=== PATIENT | male | born 1955 | race Caucasian/White ===

== ENCOUNTER → 2017-07-31 | Outpatient (CLI) | payer OTHER ==
--- NOTE | 2017-07-31 15:36 | RADRPT ---
EXAM DATE/TIME: 07/31/2017 14:50 [facility] COMPARISON: No previous studies available for comparison. INDICATIONS : Cervical spine pain for several months with no known trauma MEDICAL HISTORY : None. SURGICAL HISTORY : None. ENCOUNTER: Initial ACUITY: 4 - 6 months PAIN SCORE: 8/10 LOCATION: Cervical spine FINDINGS: A complete cervical spine series shows normal alignment. There is disc space narrowing with anterior osteophyte production at C4-C5, C5 and C6, and C6-C7. Bony uncovertebral hypertrophy generates right C4 and to lesser degree C5 neural foraminal narrowing. The left appear patent. No fracture or disloca tion. Paraspinal soft tissues are unremarkable. CONCLUSION: Degenerative changes without acute abnormality. Chay Kennedy Jr., MD on July 31, 2017 at 15:32 Board Certified Radiologist. This report was verified electronically.
--- NOTE | 2017-07-31 15:42 | RADRPT ---
EXAM DATE/TIME: 07/31/2017 14:56 [facility] COMPARISON: No previous studies available for comparison. INDICATIONS : Patient complains of pain in bilateral hands. Evaluate for osteoarthritis. MEDICAL HISTORY : None. SURGICAL HISTORY : None. ENCOUNTER: Initial ACUITY: 1 year PAIN SCORE: 6/10 LOCATION: Right Hand FINDINGS: Three view examination of the right hand demonstrates no soft tissue swelling, dislocation, or fractu re. Degenerative changes throughout the interphalangeal joints, carpus including the first carpometac arpal joint. Tiny radiopaque foreign body within the soft tissues of the second digit distal phalanx. CONCLUSION: Degenerative changes without fracture. Small foreign body distal second digit. Raúl Daugherty MD on July 31, 2017 at 15:38 Board Certified Radiologist. This report was verified electronically.
--- NOTE | 2017-07-31 15:43 | RADRPT ---
EXAM DATE/TIME: 07/31/2017 14:56 [facility] COMPARISON: No previous studies available for comparison. INDICATIONS : Patient complains of bilateral hand pain. Evaluate for osteoarthritis. MEDICAL HISTORY : None. SURGICAL HISTORY : None. ENCOUNTER: Initial ACUITY: 1 year PAIN SCORE: 6/10 LOCATION: Left Hand FINDINGS: Three view examination of the left hand demonstrates no soft tissue swelling, dislocation, or fractur e. Scattered degenerative changes involving interphalangeal joints and carpus including the first m etacarpal phalangeal joint. Persistent flexion of the PIP joint of the little finger. Radiopaque fore ign body along the proximal third digit. Radiopaque foreign body also along the distal radius.. CONCLUSION: 1. Osteoarthritic changes without fracture. 2. Small foreign bodies base of the third digit and along the distal radius. Raúl Daugherty MD on July 31, 2017 at 15:39 Board Certified Radiologist. This report was verified electronically.
--- NOTE | 2017-07-31 15:44 | RADRPT ---
EXAM DATE/TIME: 07/31/2017 15:07 [facility] COMPARISON: No previous studies available for comparison. INDICATIONS : Lower back pain for several months with no known injury MEDICAL HISTORY : None. SURGICAL HISTORY : None. ENCOUNTER: Initial ACUITY: 4 - 6 months PAIN SCORE: 8/10 LOCATION: Lumbar spine FINDINGS: There are five non-rib bearing vertebral bodies. The vertebral bodies are in normal alignment withou t evidence of subluxation or scoliosis. Degenerative changes are seen.. Bony mineralization is thi l. No fracture is identified. CONCLUSION: Degenerative changes without fracture. Raúl Daugherty MD on July 31, 2017 at 15:42 Board Certified Radiologist. This report was verified electronically.
--- NOTE | 2017-07-31 15:44 | RADRPT ---
EXAM DATE/TIME: 07/31/2017 15:02 [facility] COMPARISON: No previous studies available for comparison. INDICATIONS : Thoracic spine pain for several months with no known injury MEDICAL HISTORY : None. SURGICAL HISTORY : None. ENCOUNTER: Initial ACUITY: 4 - 6 months PAIN SCORE: 8/10 LOCATION: Thoracic spine FINDINGS: There is normal alignment of the thoracic vertebral bodies. Vertebral body height is maintained. No evidence of fracture or subluxation. Degenerative changes. The paravertebral reflections are not th ickened. Right subclavian central line with tip in the cavoatrial junction. CONCLUSION: Degenerative changes without fracture. Raúl Daugherty MD on July 31, 2017 at 15:41 Board Certified Radiologist. This report was verified electronically.
== END ==
LOC: HRAD 14:27
DX: M48.00 Spinal stenosis, site unspecified (principal); M19.90 Unspecified osteoarthritis, unspecified site
CPT/HCPCS: 72050; 72072; 72110; 73130

== ENCOUNTER → 2017-10-24 | Outpatient (CLI) | payer OTHER ==
[~2017-10-24] MED LIST: IOHEXOL 350 MG/ML 10 ML VIAL (for RAD DIAG) IVCONTRAST ONE
--- NOTE | 2017-10-24 14:38 | RADRPT ---
EXAM DATE/TIME: 10/24/2017 13:46 [facility] COMPARISON: No previous studies available for comparison. INDICATIONS : Folliculaar lymphoma IV CONTRAST: 87 cc Omnipaque 350 (iohexol) IV ; Cumulative dose for multiple exams. ORAL CONTRAST: No oral contrast ingested. RADIATION DOSE: 19.68 CTDIvol (mGy) ; Combined studies - Thorax/Abdomen/Pelvis MEDICAL HISTORY : None SURGICAL HISTORY : None. ENCOUNTER: Initial ACUITY: 1 day PAIN SCALE: 0/10 LOCATION: abdomen TECHNIQUE: Volumetric scanning of the abdomen and pelvis was performed. Using automated exposure control and ad justment of the mA and/or kV according to patient size, radiation dose was kept as low as reasonably achievable to obtain optimal diagnostic quality images. DICOM format image data is available electro nically for review and comparison. FINDINGS: LOWER LUNGS: Scarring of both lung bases. LIVER: Homogeneously lower density without lesion. There is no dilation of the biliary tree. No calcified gallstones. SPLEEN: Normal size without lesion. PANCREAS: Within normal limits. KIDNEYS: Normal in size and shape. There is no mass, stone or hydronephrosis. ADRENAL GLANDS: Within normal limits. VASCULAR: There is no aortic aneurysm. BOWEL/MESENTERY: The stomach, small bowel, and colon demonstrate no acute abnormality. There is no free intraperitone al air or fluid. ABDOMINAL WALL: Within normal limits. RETROPERITONEUM: There is significant soft tissue inflammation in and around the SMA axis and the mesentery, very unus ual in its appearance. BLADDER: No wall thickening or mass. REPRODUCTIVE: Within normal limits. INGUINAL: There is no lymphadenopathy or hernia. MUSCULOSKELETAL: Within normal limits for patient age. CONCLUSION: Mild scarring in both lung bases. Abnormal appearance to the SMA axis with significant inflammation s oft tissue surrounding the vessel. There is no obvious measurable mass, just diffuse induration of th e fatty tissues around the SMA. Donta Travis MD on October 24, 2017 at 14:33 Board Certified Radiologist. This report was verified electronically.
--- NOTE | 2017-10-24 14:47 | RADRPT ---
EXAM DATE/TIME: 10/24/2017 13:46 [facility] COMPARISON: No previous studies available for comparison. INDICATIONS : Follicular lymphoma IV CONTRAST: 87 cc Omnipaque 350 (iohexol) IV ; Cumulative dose for multiple exams. RADIATION DOSE: 19.68 CTDIvol (mGy) ; Combined studies - Thorax/Abdomen/Pelvis MEDICAL HISTORY : None SURGICAL HISTORY : None. ENCOUNTER: Initial ACUITY: 1 day PAIN SCALE: 0/10 LOCATION: chest TECHNIQUE: Volumetric scanning of the chest was performed. Using automated exposure control and adjustment of t he mA and/or kV according to patient size, radiation dose was kept as low as reasonably achievable to obtain optimal diagnostic quality images. DICOM format image data is available electronically for review and comparison. Follow-up recommendations for detected pulmonary nodules are based at a minimum on nodule size and pa tient risk factors according to Fleischner Society Guidelines. FINDINGS: LUNGS: There is no consolidation or pneumothorax other than bi-basilar scarring/atelectasis. No concerning pulmonary nodule is visualized. PLEURA: There is no pleural thickening or pleural effusion. MEDIASTINUM: The heart and great vessels demonstrate no acute abnormality. There is no mediastinal or hilar lymph adenopathy. AXILLAE: Within normal limits. No lymphadenopathy. SKELETAL: Within normal limits for patient age. MISCELLANEOUS: The visualized upper abdominal organs demonstrate no acute abnormality. CONCLUSION: Platelike atelectasis or scarring in both lung bases. Fatty liver.. Donta Travis MD on October 24, 2017 at 14:44 Board Certified Radiologist. This report was verified electronically.
== END ==
LOC: HRAD 11:38
PROVIDERS: ATTEND Internal Medicine Hematology
DX: C82.13 Follicular lymphoma grade II, intra-abdominal lymph nodes (principal)
CPT/HCPCS: 71260; 74177; Q9967

== ENCOUNTER → 2017-10-29 | Outpatient (CLI) | payer OTHER ==
--- NOTE | 2017-10-29 13:41 | RADRPT ---
EXAM DATE/TIME: 10/29/2017 11:42 [facility] COMPARISON: No previous studies available for comparison. PRIOR BONE SCANS: No correlative bone scan available for comparison. INDICATIONS : Prostate carcinoma. History of lymphoma. DOSE: 31.2 mCi Tc99m MDP IV MEDICAL HISTORY : Lymphoma. Carcinoma, prostate. SURGICAL HISTORY : Appendectomy. Biopsy. ENCOUNTER: Initial ACUITY: 1 day PAIN SCALE: 0/10 LOCATION: Bilateral lower quadrant TECHNIQUE: Three hours post intravenous administration of radiotracer, whole body bone scan imaging was performe d. TOD view was also performed. FINDINGS: Whole body scan demonstrates degenerative changes in the articulation of the 1st rib with the manubri um, a.c. joints, and dorsal midfoot bilaterally. No focal areas of abnormal increased or decreased u ptake to suggest bony metastatic disease. CONCLUSION: No evidence of bony metastatic disease. Chay García MD on October 29, 2017 at 13:38 Board Certified Radiologist. This report was verified electronically.
== END ==
LOC: HRAD 07:11
PROVIDERS: ATTEND Urology
DX: C61 Malignant neoplasm of prostate (principal)
CPT/HCPCS: 78306; A9503